=== PATIENT | male | born 1970 | race Caucasian/White ===

== ENCOUNTER 2017-06-28 10:16 | Day surgery (SDC) | END 2017-06-29 17:10 | disposition home or self-care (01) | DX: K60.3 Anal fistula (principal); E78.5 Hyperlipidemia, unspecified; E11.9 Type 2 diabetes mellitus without complications | CPT/HCPCS: 46270; 80053; 82962; 85025; 85610; 85730; 88304; J0131; J0690; J1100; J1170; J1885; J2250; J2405; J2765; J3010; Z7512; Z7610 ==

== ENCOUNTER 2018-01-20 13:34 | Emergency (ER) | END 2018-01-20 17:04 | disposition home or self-care (01) ==

== ENCOUNTER 2018-02-15 13:09 | Emergency (ER) | END 2018-02-15 16:05 | disposition home or self-care (01) ==